=== PATIENT | male | born 1975 | race Caucasian/White ===

== ENCOUNTER 2020-09-06 10:51 | Inpatient (IN) | payer SELFPAY ==
[2020-09-06] MEDS ORDERED: Iopamidol 370 76% 100 ML VIAL ONE (10:54)
[2020-09-06] MEDS ORDERED: Iopamidol 370 76% 50 ML VIAL FS ONE (10:54)
[2020-09-06] MEDS ORDERED: Nitroglycerin 2% Ointment 1 INCH/1 GM Packet ONE (11:41)
[2020-09-06 11:49] LABS: #Eosinphils 0.4 thou/uL (0.0-0.7); #Lymphocytes 1.2 thou/uL (1.20-3.40); #Neutrophils 8.2 thou/uL (1.40-6.50); %Basophils 0.2 % (0.0-1.0); %Eosinophils 3.5 % (0.0-10.0); %Lymphocytes 11.1 % (21.0-51.0); %Monocytes 9.2 % (0.0-10.0); Mean Corpuscular HGB CONC 33.4 g/dL (32.0-36.0); Mean Corpuscular Hemoglobin 31.7 pg (27.0-31.0); Mean Platelet Volume 7.4 fL (7.4-10.4); Platelet Count 223 thou/uL (130-400); RBC Distribution Width 11.7 % (11.5-14.5); Red Blood Cell (RBC) Count 5.06 mill/uL (4.70-6.10); White Blood Cell (WBC) Count 10.7 thou/uL (4.8-10.8)
[2020-09-06 12:15] LABS: Anion Gap 14 mmol/L (10-20); BUN (Urea Nitrogen) 9 mg/dL (8.9-20.6); Calc. Creatinine Clearance 0 mL/min (70-130); Carbon Dioxide 26 mmol/L (22-29); Chloride 101 mmol/L (98-107); Glucose 103 mg/dL (70-105); INR-International Normal Ratio 0.9; PTT 28.7 sec (22.9-36.1); Potassium 4.1 mmol/L (3.5-5.1); Prothrombin Time 12.8 sec (12.0-14.7); Sodium 137 mmol/L (136-145)
[2020-09-06 12:16] LABS: ALT (SGPT) 34 U/L (8-55); AST (SGOT) 63 U/L (5-34); Albumin 4.4 g/dL (3.5-5.0); Alkaline Phosphatase 44 U/L (40-110); Bilirubin, Total 0.6 mg/dL (0.2-1.2); Calcium 9.3 mg/dL (7.8-10.44); Globulin 2.7 g/dL (2.4-3.5); Protein, Total 7.1 g/dL (6.0-8.3)
[2020-09-06 12:43] LABS: CKMB 50.7 ng/mL (0-6.6)
[2020-09-06] MEDS ORDERED: Lidocaine 1% (PF) 30 ML VIAL ONE (13:00)
[2020-09-06] MEDS ORDERED: Adenosine 6 MG/2 ML VIAL ONE (13:09)
[2020-09-06] MEDS ORDERED: Nitroglycerin 100MG/250ML BOT 250 ML ONE (13:09)
[2020-09-06] MEDS ORDERED: Verapamil 5 MG/2 ML VIAL ONE (13:09)
[2020-09-06] MEDS ORDERED: Fentanyl 100 MCG/2 ML VIAL ONE (13:22)
[2020-09-06] MEDS ORDERED: Midazolam HCl 2 mg/2 ml Vial ONE (13:22)
[2020-09-06] MEDS ORDERED: Heparin 10,000 UNITS/ 10 ML VIAL ONE (13:22)
[2020-09-06] MEDS ORDERED: Clopidogrel Bisulfate 300 MG TAB ONE (14:18)
[2020-09-06] MEDS ORDERED: Nitroglycerin 0.4 MG TAB (25 Tab Bottle) SL PRN (14:18)
[2020-09-06] MEDS ORDERED: Sodium Chloride 0.9% 1,000 ML IV SCH (14:30)
[2020-09-06] MEDS ORDERED: Nitroglycerin 0.4 MG TAB (25 Tab Bottle) ONE (15:30)
[2020-09-06 15:49] LABS: Troponin I 8.231 ng/mL (< 0.028)
[2020-09-06] MEDS ORDERED: Ondansetron PF 4 MG/2 ML Vial ONE (16:04)
[2020-09-06] MEDS ORDERED: Ondansetron PF 4 MG/2 ML Vial IVP SCH (17:30)
[2020-09-06 17:42] VITALS: BMI 39.5
[2020-09-06] MEDS ORDERED: Acetaminophen 325 MG TAB PO PRN (17:42)
[2020-09-06 21:47] LABS: SARS-CoV-2 PCR by NAA Not Detected (NotDetected)
[2020-09-07 05:40] LABS: #Basophils 0.1 thou/uL (0.0-0.2); #Eosinphils 0.3 thou/uL (0.0-0.7); #Lymphocytes 1.1 thou/uL (1.20-3.40); #Monocytes 1.2 thou/uL (0.11-0.59); #Neutrophils 7.7 thou/uL (1.40-6.50); %Basophils 0.5 % (0.0-1.0); %Eosinophils 2.9 % (0.0-10.0); %Monocytes 11.3 % (0.0-10.0); %Neutrophils 74.3 % (42.0-75.0); Mean Corpuscular HGB CONC 32.8 g/dL (32.0-36.0); Mean Corpuscular Volume 94.5 fL (78.0-98.0); Mean Platelet Volume 7.3 fL (7.4-10.4); Platelet Count 212 thou/uL (130-400); RBC Distribution Width 11.8 % (11.5-14.5); Red Blood Cell (RBC) Count 4.86 mill/uL (4.70-6.10); White Blood Cell (WBC) Count 10.3 thou/uL (4.8-10.8)
[2020-09-07 06:13] LABS: ALT (SGPT) 36 U/L (8-55); AST (SGOT) 78 U/L (5-34); Alkaline Phosphatase 43 U/L (40-110); Anion Gap 13 mmol/L (10-20); BUN (Urea Nitrogen) 6 mg/dL (8.9-20.6); Bilirubin, Total 0.9 mg/dL (0.2-1.2); Calc. Creatinine Clearance 176 mL/min (70-130); Calcium 9.2 mg/dL (7.8-10.44); Carbon Dioxide 26 mmol/L (22-29); Cardiac Risk 4.9 (Less than 4.5); Chloride 101 mmol/L (98-107); Cholesterol 225 mg/dl (< 200 Desired); Glucose 109 mg/dL (70-105); HDL Cholesterol 46 mg/dL (>60 Neg Risk); LDL Cholesterol, Calculated 148 mg/dL; Potassium 4.4 mmol/L (3.5-5.1); Sodium 136 mmol/L (136-145); Triglycerides 153 mg/dL (Less than 150)
[2020-09-07] MEDS: Clopidogrel Bisulfate 75 MG TAB PO SCH (08:19)
[2020-09-07] MEDS: Aspirin Chewable 81 MG TAB PO SCH (08:19)
[2020-09-07] MEDS ORDERED: Enoxaparin Sodium 40 MG/0.4 ML SYRINGE SC SCH (09:00)
[2020-09-07] MEDS ORDERED: Zolpidem Tartrate 5 MG TAB PO PRN (13:10)
[2020-09-07] MEDS ORDERED: Atorvastatin Calcium 40 MG TAB PO SCH (21:00)
[2020-09-08 07:43] VITALS: TEMP 97.8
[2020-09-08] MEDS: Clopidogrel Bisulfate 75 MG TAB PO SCH (08:10)
[2020-09-08] MEDS: Aspirin Chewable 81 MG TAB PO SCH (08:10)
[2020-09-08 09:21] VITALS: BP 131/70
== END 2020-09-08 11:46 | disposition home or self-care (01) | DRG 247 ==
LOC: ERS 10:51 → CCL 13:10 → EDBD 14:18 → 2SE 14:18
PROVIDERS: ADMIT Internal Medicine Cardiovascular Disease; ATTEND Internal Medicine
PROC: 027034Z Dilation of Coronary Artery, One Artery with Drug-eluting Intraluminal Device, Percutaneous Approach (ICD-10-PCS; principal; 2020-09-06)
PROC: 4A023N7 Measurement of Cardiac Sampling and Pressure, Left Heart, Percutaneous Approach (ICD-10-PCS; 2020-09-06)
PROC: B2111ZZ Fluoroscopy of Multiple Coronary Arteries using Low Osmolar Contrast (ICD-10-PCS; 2020-09-06)
PROC: B2151ZZ Fluoroscopy of Left Heart using Low Osmolar Contrast (ICD-10-PCS; 2020-09-06)
DX: I21.4 Non-ST elevation (NSTEMI) myocardial infarction (principal); Z20.822 Contact with and (suspected) exposure to COVID-19; E78.5 Hyperlipidemia, unspecified; F17.210 Nicotine dependence, cigarettes, uncomplicated
CPT/HCPCS: 36415; 71045; 80053; 80061; 82553; 84484; 85025; 85347; 85610; 85730; 87635; 92928; 93005; 93010; 93306; 93458; 93798; 99152; 99153; C1874; C9600; J0153; J1644; J2001; J2250; J2405; J3010; Q9967; U0003; U0005